=== PATIENT | female | born 1985 | race Caucasian/White ===

== ENCOUNTER 2020-01-19 00:49 | Emergency (ER) | payer BC ==
[~2020-01-19] VITALS: Ht 157.5 cm; Wt 54.4 kg
--- NOTE | 2020-01-19 00:55 | NUR ---
Patient bib RA 909 for possible allergic reaction to her dog and anxiety. Patient spoke with seed corn production manager today and was prescribed prednisone, she is also taking benadryl and olivia, patient denies any shortness of breath or difficulty swaollwing, states she feels her throat is dry and feels that her body is itchy. No rashes noted.
--- NOTE | 2020-01-19 00:58 | NUR ---
Dr. Quach at bedside for MSE.
[2020-01-19] MEDS ORDERED: LORAZEPAM 1 MG TABLET ONE (01:10)
[2020-01-19] MEDS ORDERED: LORAZEPAM 0.5 MG TABLET PO ONE (01:15)
[2020-01-19] MEDS ORDERED: DIAZEPAM 2 MG TABLET PO ONE (01:15)
[2020-01-19] MEDS ORDERED: DIAZEPAM 5 MG TABLET ONE (01:21)
[2020-01-19 01:26] VITALS: BP 115/77
--- NOTE | 2020-01-19 01:26 | NUR ---
Patient discharged to home in stable condition. Written and verbal after care instructions given. Patient verbalizes understanding of instructions. Stressed follow up or return to ER for worsening s/s. Patient left with stable gait.
== END 2020-01-19 01:27 | disposition home or self-care (01) ==
LOC: ER 00:52
DX: T78.3XXA Angioneurotic edema, initial encounter (principal)
CPT/HCPCS: A4663